=== PATIENT | male | born 1965 | race Caucasian/White ===

== ENCOUNTER 2022-02-05 07:45 | Inpatient (IN) | payer OTHER ==
[~2022-02-05] VITALS: Ht 162.6 cm; Wt 79.4 kg
[2022-02-05] MEDS ORDERED: VASERETIC 10-21 EACH PO (10:23)
[2022-02-05] MEDS ORDERED: METFORMIN HCL500 M3 PO (10:23)
== END 2022-02-13 14:15 | disposition home or self-care (01) | DRG 470 ==
LOC: SURH 02-11 07:00 → O/R 02-11 07:36 → SURH 02-11 07:45 → SURG 02-11 14:29
PROVIDERS: ADMIT Orthopaedic Surgery; ATTEND Orthopaedic Surgery
PROC: 0SRD0J9 Replacement of Left Knee Joint with Synthetic Substitute, Cemented, Open Approach (ICD-10-PCS; principal; 2022-02-11 07:00)
DX: M17.12 Unilateral primary osteoarthritis, left knee (principal); D62 Acute posthemorrhagic anemia; M85.662 Other cyst of bone, left lower leg; I10 Essential (primary) hypertension; E11.9 Type 2 diabetes mellitus without complications